=== PATIENT | female | born 1965 | race American Indian/Alaskan Native ===

== ENCOUNTER 2018-07-08 20:24 | Emergency (ER) | payer OTHER ==
[2018-07-08 20:24] VITALS: BMI 35.4
[2018-07-08 20:43] VITALS: BP 121/74; PULSE 84; RESP 18; TEMP 98; O2SAT 96
--- NOTE | 2018-07-08 21:38 | C.PDOC ---
History Of Present Illness 52 year old female 20+ pack year smoker presents to the ER with a complaint of a persistent cough for the past 2 days with post tussive vomiting. She has been taking OTC medication with no relief. Denies diarrhea, rash, abdominal pain, chest pain, SOB, or recent travel. Time Seen by Provider: 07/08/18 20:59 Chief Complaint (Nursing): Cough, Cold, Congestion History Per: Patient History/Exam Limitations: no limitations Onset/Duration Of Symptoms: Days (2) Current Symptoms Are (Timing): Still Present Location Of Pain: None Sick Contacts (Context): None Associated Symptoms: Cough, Vomiting (Post tussive). denies: Diarrhea, Other (Chest pain, SOB, Rash) Ear Symptoms: Bilateral: None Recent travel outside of the [place]: No Past Medical History Reviewed: Historical Data, Nursing Documentation, Vital Signs Vital Signs: Last Vital Signs Temp 98 F 07/08/18 20:42 Pulse 84 07/08/18 20:42 Resp 18 07/08/18 20:42 BP 121/74 07/08/18 20:42 Pulse Ox 96 07/08/18 20:42 - Medical History PMH: Asthma, Colonic Polyps, Fractures (right arm), Gastritis, HTN, Hypercholesterolemia Denies: Chronic Kidney Disease Surgical History: Hernia Repair (ABDOMINAL 8 YRS AGO) - [facility] Procedures INJECT/INFUSE NEC (11/21/06) Family History: States: Unknown Family Hx - Social History Hx Alcohol Use: No Hx Substance Use: No - Immunization History Hx Tetanus Toxoid Vaccination: Yes Hx Influenza Vaccination: Yes Hx Pneumococcal Vaccination: Yes Review Of Systems Constitutional: Negative for: Fever, Chills Cardiovascular: Negative for: Chest Pain Respiratory: Positive for: Cough. Negative for: Shortness of Breath Gastrointestinal: Positive for: Vomiting (Post tussive). Negative for: Abdominal Pain, Diarrhea Skin: Negative for: Rash Physical Exam - Physical Exam Appears: Non-toxic Skin: Normal Color, Warm, Dry Head: Atraumatic, Normacephalic Eye(s): bilateral: Normal Inspection Ear(s): Bilateral: Normal Nose: Normal Oral Mucosa: Moist Throat: Normal, No Erythema, No Exudate Neck: Normal, Supple Chest: Symmetrical, No Tenderness Cardiovascular: Rhythm Regular Respiratory: No Rales, Rhonchi (Scattered), No Wheezing Gastrointestinal/Abdominal: Soft, No Tenderness Neurological/Psych: Oriented x3, Normal Speech ED Course And Treatment O2 Sat by Pulse Oximetry: 96 (Room air) Pulse Ox Interpretation: Normal - Radiology CXR: Interpreted by Me, Viewed By Me CXR Interpretation: Yes: No Acute Disease. No: Infiltrates Medical Decision Making Medical Decision Making: Motrin administered. CXR ordered, results were negative. Will start on zithromax and discharge home with instructions to follow up with PMD or return if symptoms worsen. Disposition - Disposition Referrals: Sandeep Wei MD [Staff Provider] - Disposition: HOME/ ROUTINE Disposition Time: 22:32 Condition: STABLE Additional Instructions: Follow up with the medical doctor within 1-2 days. return if worsened. 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 - Scribe Statement The provider has reviewed the documentation as recorded by the Scribe Baldev Bragg All medical record entries made by the Meccaibchristine were at my direction and personally dictated by me. I have reviewed the chart and agree that the record accurately reflects my personal performance of the history, physical exam, medical decision making, and the department course for this patient. I have also personally directed, reviewed, and agree with the discharge instructions and disposition.
--- NOTE | 2018-07-09 10:48 | RAD ---
Date of service: 07/08/2018 HISTORY: cough, SOB COMPARISON: No prior. TECHNIQUE: Chest PA and lateral FINDINGS: LUNGS: No active pulmonary disease. PLEURA: No significant pleural effusion identified. No pneumothorax apparent. CARDIOVASCULAR: No aortic atherosclerotic calcification present. Normal cardiac size. No pulmonary vascular congestion. OSSEOUS STRUCTURES: No significant abnormalities. VISUALIZED UPPER ABDOMEN: Normal. OTHER FINDINGS: None. IMPRESSION: No active disease. Concordant results with the preliminary interpretation rendered by the emergency department physician procedure.
== END 2018-07-08 22:39 | disposition home or self-care (01) ==
LOC: C.ER 20:24
DX: J40 Bronchitis, not specified as acute or chronic (principal); Z87.891 Personal history of nicotine dependence